=== PATIENT | female | born 1990 | race Caucasian/White ===

== ENCOUNTER → 2016-06-30 | Outpatient (CLI) | payer BC, MEDICAID ==
[~2016-06-30] MED LIST: ALBU2.5V4 IH; AMOX400S85 PO; AZIT250T PO; DICY20TA10 PO; GUAI100L13 PO; HYDR-3702 PO; LEVO750T39 PO; ONDA4TABED PO; ONDAN4ODT PO; PRED15SO PO
--- NOTE | 2016-06-30 12:08 | Diagnostic Imaging Report ---
INDICATION: None given. FINDINGS: Three views of the right foot demonstrate no fracture or dislocation. The articular surfaces are normal. There is no foreign body. IMPRESSION: Negative right foot. Dictated by: Dictated on workstation # [id number]
== END ==
LOC: RAD 09:49
PROVIDERS: ATTEND Family Medicine
DX: M79.671 Pain in right foot (principal)